=== PATIENT | female | born 1945 | race Caucasian/White ===

== ENCOUNTER 2024-05-19 10:41 | Outpatient (AMB) | payer OTHER, SELFPAY ==
--- NOTE | 2024-05-19 11:08 | MHC.OFFVIS ---
Vital Signs 05/19/24 11:09 Height 5 ft 3 in Weight 154 lb 4 oz BMI 27.3 BP 130/82 Blood Pressure Location Lt brachial Position Sitting Pulse 74 Pulse Source Pulse Oximeter Pulse Oximetry (%) 98 Oxygen Delivery Method Room Air Intake Visit Reasons: arthritis Allergies erythromycin base Allergy (Mild, Verified 05/19/24 11:25) Nausea Sulfa (Sulfonamide Antibiotics) [Sulfa (Sulfonamides)] Allergy (Mild, Unverified 01/27/20 17:35) RASH Penicillins Allergy (Unknown, Unverified 01/27/20 17:35) RASH HPI HPI arthritis: Details: She has bilateral knee pain with prolonged walking and gel phenomena. L knee patellar fracture 2012 healed on its own. She completed physical therapy but has felt that her left knee has not been the same since the fracture. She has seen [facility] and has received 3 cortisone injections last year in her right knee. At the time her left knee was not as painful when she received a cortisone injections. She reports that the initial cortisone injection was beneficial but the 2nd 1 did not last as long. Left knee pain started over the summer. She is currently experiencing pain in both knees worse when walking. She used to walk daily 6 to 7 times a week. She has tried Tylenol Arthritis 650 mg 1 tablet without benefit. She chooses to take a leave every other day, which helps her sleep through the night. She was told to avoid NSAIDs due to hypertension for which she is currently not on any medication for. She has had chronic neck and shoulder pain since age 29s. No change in symptoms. She overall has general stiffness in the morning. She has not experiencing any joint swelling. Denies fevers, rashes, dyspnea, pleurisy, oral ulcers, Raynaud's phenomenon. Denies scalp tenderness, headaches, vision changes, jaw pain. She reports her eyes are red and itchy. She has allergies. She discussed considering Sjogren syndrome with her freight trucker who did not feel that she has Sjogren syndrome. She had minimal dry mouth. She reports that her grandmother had rheumatism and had clinical osteoarthritis. 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 She has a drink weekly or less. Does not smoke. 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 Type 2 diabetes mellitus Statin intolerance Rosacea Osteoarthritis IBS (irritable bowel syndrome) Insomnia IgG monoclonal gammopathy Hyperparathyroidism Fibromyalgia Anxiety Surgical History (Updated 05/19/24 @ 11:31 by KEVIN Silverio) Hx of tonsillectomy H/O parathyroidectomy Hx of hysterectomy H/O colonoscopy Review of Systems Const All systems reviewed & are unremarkable except as noted in HPI and below Physical Exam Vital Signs: Last Vital Signs Pulse 74 05/19/24 11:09 BP 130/82 05/19/24 11:09 Pulse Ox 98 05/19/24 11:09 Oxygen Delivery Method Room Air 05/19/24 11:09 BMI result Body Mass Index 27.3 Const Other: General: Comfortable CVS: RRR Respiratory: clear to auscultation bilaterally. Good respiratory effort Skin: No lesions seen MSK: Heberden's node present right 5th DIPJ. No synovitis of any joints. She has turned to this of right 2nd and 3rd PIP. Good range of motion of upper extremities. Limited bilateral hip external rotation. Good knee flexion. She has tenderness along joint lines of bilateral knees. No knee effusions present. No ankle tenderness. Results Reviewed Results Reviewed: Labs from 01/30/2024 reviewed. Normal creatinine, CBC. Assessment & Plan Assessment & Plan (1) Knee pain, bilateral: Comment: With gel phenomenon suggesting osteoarthritis. She also has limited range of motion of her hips contributing to reduced mobility. Code(s): M25.561 - Pain in right knee; M25.562 - Pain in left knee Category: Medical Qualifiers: Chronicity: chronic Qualified Code(s): M25.561 - Pain in right knee; M25.562 - Pain in left knee; G89.29 - Other chronic pain Plan: X-ray of bilateral knees and hips ordered Return to clinic in 2-3 weeks for bilateral cortisone injections Take 2 tablets Tylenol 650 mg every 8 hours p.r.n. as needed PT ordered for lower extremity strengthening Avoid oral NSAIDs in setting of hypertension (2) Generalized stiffness: Comment: She is experiencing gel phenomenon, which is a symptom of osteoarthritis. Code(s): M25.60 - Stiffness of unspecified joint, not elsewhere classified Category: Medical Plan: PT ordered for lower extremity strengthening Return to clinic in 2-3 weeks Orders: Orders XR knee standing BI Today M25.561 - Pain in right knee, M25.562 - Pain in left knee XR hip TAHIR min 3V w/wo pel Today M25.60 - Stiffness of unspecified joint, not elsewhere classified PT Evaluation and Treatment Today M25.561 - Pain in right knee, M25.562 - Pain in left knee, M25.60 - Stiffness of unspecified joint, not elsewhere classified Coding Level of Care Code New Pt Level 4 (71793) Diagnoses Chronic pain of both knees M25.561; M25.562; G89.29 Chronicity: chronic Generalized stiffness M25.60
[2024-05-19 11:09] VITALS: BP 130/82; PULSE 74; O2SAT 98; BMI 27.3
== END 2024-05-19 12:16 | disposition home or self-care (01) ==
PROVIDERS: PCP Internal Medicine; Visit Provider Internal Medicine Rheumatology
DX: M25.561 Pain in right knee (principal); M25.562 Pain in left knee; G89.29 Other chronic pain; M25.60 Stiffness of unspecified joint, not elsewhere classified
CPT/HCPCS: 99204

== ENCOUNTER → 2024-05-19 10:41 | Outpatient (BNVA) | payer OTHER, SELFPAY | PROVIDERS: PCP Internal Medicine; Visit Provider Internal Medicine Rheumatology | DX: M25.561 Pain in right knee (principal); M25.562 Pain in left knee; G89.29 Other chronic pain; M25.60 Stiffness of unspecified joint, not elsewhere classified | CPT/HCPCS: 99202 ==

== ENCOUNTER 2024-05-21 12:26 | Outpatient (REF) | payer MEDICARE, SELFPAY ==
--- NOTE | ~2024-05-21 | XR_ITS ---
CLINICAL HISTORY: M25.60 - Stiffness of unspecified joint, not elsewhere classified 5 view, pelvis and bilateral hips Comparison: None Findings: No acute fracture or dislocation. No significant arthritic change. The soft tissues are unremarkable. IMPRESSION: No acute findings. This document has been electronically signed by: Dean Randle MD on 05/24/2024 12:24:20
--- NOTE | ~2024-05-21 | XR_ITS ---
CLINICAL HISTORY: M25.561 - Pain in right knee 1 view bilateral knee Comparison: None Findings: Bones intact. No dislocations. There is severe medial joint space narrowing at the right knee. There is mild medial joint space narrowing on the left. No joint effusion. No radiopaque foreign body. IMPRESSION: There is severe medial joint space narrowing at the right knee. There is mild medial joint space narrowing on the left. This document has been electronically signed by: Dean Randle MD on 05/24/2024 12:33:47
== END 2024-05-21 12:27 | disposition home or self-care (01) ==
LOC: HO.XRAY 12:26
PROVIDERS: PCP Internal Medicine; Visit Provider Internal Medicine Rheumatology
DX: M25.561 Pain in right knee (principal); M25.562 Pain in left knee; M25.60 Stiffness of unspecified joint, not elsewhere classified
CPT/HCPCS: 73522; 73565

== ENCOUNTER → 2024-05-21 12:35 | Outpatient (BNV) | payer MEDICARE, SELFPAY | PROVIDERS: PCP Internal Medicine; Visit Provider Radiology Diagnostic Radiology | DX: M25.561 Pain in right knee (principal); M25.562 Pain in left knee; M25.651 Stiffness of right hip, not elsewhere classified; M25.652 Stiffness of left hip, not elsewhere classified | CPT/HCPCS: 73522; 73565 ==

== ENCOUNTER 2024-06-08 09:48 | Outpatient (AMB) | payer MEDICARE, SELFPAY ==
[2024-06-08 09:53] VITALS: BP 128/72; PULSE 70; O2SAT 98; BMI 27.6
--- NOTE | 2024-06-08 09:53 | MHC.OFFVIS ---
Vital Signs 06/08/24 09:53 Height 5 ft 3 in Weight 156 lb BMI 27.6 BP 128/72 Blood Pressure Location Lt brachial Position Sitting Pulse 70 Pulse Source Pulse Oximeter Pulse Oximetry (%) 98 Oxygen Delivery Method Room Air Intake Visit Reasons: RTC Intake Note: Patient presents for follow up on bilateral knee pain. She was last seen on 05/19/2024. Patient would like to talk about cortisone injection today. Allergies erythromycin base Allergy (Mild, Verified 06/08/24 09:57) Nausea Sulfa (Sulfonamide Antibiotics) [Sulfa (Sulfonamides)] Allergy (Mild, Unverified 06/08/24 09:57) RASH Penicillins Allergy (Unknown, Unverified 06/08/24 09:57) RASH HPI HPI RTC: Details: Pain in knees is uncontrolled. She had cortisone injection in November, which was ineffective. After cortisone injection she was in [place] and was walking more than her usual. Prior to injection 11/2023 she had cortisone injections to bilateral knees with a few months of benefit. 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 Type 2 diabetes mellitus Statin intolerance Rosacea Osteoarthritis IBS (irritable bowel syndrome) Insomnia IgG monoclonal gammopathy Hyperparathyroidism Fibromyalgia Anxiety Surgical History (Updated 05/19/24 @ 11:31 by KEVIN Silverio) Hx of tonsillectomy H/O parathyroidectomy Hx of hysterectomy H/O colonoscopy Review of Systems Const All systems reviewed & are unremarkable except as noted in HPI and below Physical Exam Vital Signs: Last Vital Signs Pulse 70 06/08/24 09:53 BP 128/72 06/08/24 09:53 Pulse Ox 98 06/08/24 09:53 Oxygen Delivery Method Room Air 06/08/24 09:53 BMI result Body Mass Index 27.6 Const Other: General: Comfortable Skin: No lesions seen MSK: Good knee flexion. She has tenderness along joint lines of bilateral knees. No knee effusions present. No ankle tenderness. Office Procedures AMB Joint Injection/Aspiration Joint Injection/Aspiration Details: Bilateral knee joints Prep: site was prepped using aseptic technique Injected into each joint: 40 mg of, Kenalog, with 1 mL of and 1% plain lidocaine Procedure: The patient tolerated the procedure well. Postprocedure protocol was discussed with patient. Coding - Bilateral Large Joint Procedure code (CPT) selection complete AMB Joint Injection/Aspiration Coding 58354 - Bilateral Large Joint Procedure code (CPT) selection complete Office Meds lidocaine (PF) 10 mg/mL (1 %) injection solution Performing Provider: Romaine Yu MD Performing Location: [facility] Administered by: Romaine Yu MD on 06/08/24 22:14 Dose Route Admin Location Dispensed Lot Number Expiration Date [facility] [employer] 10 mg Infiltration 5 mL [id number] HUONS/VGYAAN Kenalog 40 mg/mL suspension for injection Performing Provider: Romaine Yu MD Performing Location: [facility] Administered by: Romaine Yu MD on 06/08/24 22:14 Dose Route Admin Location Dispensed Lot Number Expiration Date [facility] [employer] 40 mg intra-articular 1 mL AP [id number] [employer] lidocaine (PF) 10 mg/mL (1 %) injection solution Performing Provider: Romaine Yu MD Performing Location: [facility] Administered by: Romaine Yu MD on 06/08/24 22:14 Dose Route Admin Location Dispensed Lot Number Expiration Date [facility] Adult [employer] 10 mg Infiltration 2 mL [id number] FRESENIUS KA Kenalog 40 mg/mL suspension for injection Performing Provider: Romaine Yu MD Performing Location: [facility] Administered by: Romaine Yu MD on 06/08/24 22:14 Dose Route Admin Location Dispensed Lot Number Expiration Date [facility] Adult [employer] 40 mg intra-articular 1 mL [id number] [employer] Assessment & Plan Assessment & Plan (1) Osteoarthritis of knees, bilateral: Comment: Pain is uncontrolled. Personally reviewed x-rays with patient. Code(s): M17.0 - Bilateral primary osteoarthritis of knee Category: Medical Qualifiers: Osteoarthritis type: primary Qualified Code(s): M17.0 - Bilateral primary osteoarthritis of knee Plan: Patient received intra-articular cortisone injections to bilateral knees Continue to use Tylenol as needed for joint pain Avoid oral NSAIDs due to hypertension Continue physical therapy Return to clinic 3 months Orders: Orders AMB Joint Injection/Aspiration Today M17.0 - Bilateral primary osteoarthritis of knee XR knee RT 2V Today M17.0 - Bilateral primary osteoarthritis of knee XR knee LT 2V Today M17.0 - Bilateral primary osteoarthritis of knee AMB Joint Injection/Aspiration Today M17.0 - Bilateral primary osteoarthritis of knee Coding Level of Care Code Est Pt Level 3 (03534) Complex EM visit Add On G2211 Diagnoses Primary osteoarthritis of both knees M17.0 Osteoarthritis type: primary CPT Codes Coding - 98672 - Bilateral Large Joint: 60433 - Bilateral Large Joint ([id number]) Coding - 18230 - Bilateral Large Joint: 27742 - Bilateral Large Joint ([id number])
--- OUTSIDE RECORDS SUMMARY | 2024-06-08 10:25 | XMS_ITS | Patient Health Record ---
Author Organization [facility] Address [address] [place] [address] Care Team Providers Care Professional Development Instructor Name Role Phone MADDIE (RETIRED) STEPHAN Torres Primary Care Provi sulaiman Lila Gordon Unavailable [phone] Allergies Allergen (clinical drug ingredient) Drug/Non Drug Allergy documented on EMR Reaction Allergy Type Onset Date Status erythromycin Erythromycin Unknown Drug Allergy A ctive Sulfa Skin Rash Drug Allergy Active Penicillin Skin Rash Drug Allergy Active Reason For Referral No Information Medications Medication SIG (Take, Route, Fr equency, Duration) Notes Start Date End Date Status Calcium-D 600MG 1 ORAL daily for -3 Phillip-MJ 07/15/2011 Active Macrobid 100 MG 1 capsule with food Orally every 12 hrs for 5 days 12/30/2019 Active metFORMIN HCl Active PYRIDIUM 200 MG 1 tablet after meals Orally Three times a day for 3 days 12/30/2019 Act nina Xanax 0.5 MG 1 tablet Orally at bedtime prn Phillip-MJ 2013 Not-Taking Immunizations Vaccine Route Administration Date Status Comme nts Influenza, live, intranasal Unknown 10/06/2013 Pending Pneumococcal polysaccharide PPV23 Unknown 09/05/2017 Pe nding Td (adult), absorbed Unknown 10/06/2013 Pending Social History Tobacco Use: Social History Observation Description Date Details (start date - stop date) Never Smoker NA - NA Tobacco Use/Smoking Question Answer Notes Are you a nonsmoker Alcohol Screen (Audit-C) Question Answer Notes Did you have a drink contain ing alcohol in the past year? Yes How often did you have a dri nk containing alcohol in the past year? 2 to 4 times a month (2 points) How many drinks did you have on a typical day when you were drinking in the past year? 1 or 2 drinks (0 point) Points 2 Interpretation Negative Sexual History Question Answer Notes Had sex in the past 12 months (vaginal, oral, or anal)? Yes with Men only Prevention strategies discussed: Other Section Notes: Problems Problem Type SNOMED Code ICD Code Onset Dates Problem Status W/U Status Risk Notes Problem Postmenopausal atrophic vaginitis (13410135) Postmenopausal atrophic vaginitis (N95.2) Active confirmed Problem Gynecological examination normal ([id number]) Routine gynecological examination (V72.31) Active confirmed Diag Plan Of Treatment Pending Test Test Name Order Date Urinalysis 12/30/2019 THIN PREP,HPV,SATNAM IF HPV+ (>29YR)(SCRN) 09/05/2017 Insurance Providers Payer Name Payer Address Payer Phone Subscriber Number Group Number Insured Name Patient Relationship to Insured Coverage Start Date Coverage End Date MEDICARE [address] [facility] [place] [place] [id number] JOSE PÉREZ Self - patient is the insured MEDEX [address] [place] [address] [phone] [id number] JOSE PÉREZ Self - patient is the insured Medical (General) History Medical History History ICD Code Type 2 diabetes mellitus without complic ations E11.9 Fibromyalgia M79.7 Postmenopausal atrophic vaginitis N95.2 Surgical History Surgery Date(Month/Year) Hysterectomy LAVH no BSO Parathyroidectomy Colonoscopy Hospitalization History Reason Date(Month/Year) 2 Vaginal Deliveries See Surgical Hx
== END 2024-06-08 10:35 | disposition home or self-care (01) ==
PROVIDERS: PCP Internal Medicine; Visit Provider Internal Medicine Rheumatology
DX: M17.0 Bilateral primary osteoarthritis of knee (principal)
CPT/HCPCS: 20610; 99213

== ENCOUNTER → 2024-06-08 09:48 | Outpatient (BNVA) | payer MEDICARE, SELFPAY | PROVIDERS: PCP Internal Medicine; Visit Provider Internal Medicine Rheumatology | DX: M17.0 Bilateral primary osteoarthritis of knee (principal) | CPT/HCPCS: 20610; 99212; J2003; J3300 ==

== ENCOUNTER 2024-06-16 11:18 | Outpatient (REF) | payer MEDICARE, SELFPAY ==
--- NOTE | ~2024-06-16 | XR_ITS ---
EXAMINATION: XR KNEE, RIGHT CLINICAL INFORMATION: M17.0 - Bilateral primary osteoarthritis of knee COMPARISON: None available. TECHNIQUE: Single lateral projection of the right knee. FINDINGS: Inadequate evaluation demonstrated no gross malalignment or suprapatellar bursa joint effusion. Vascular calcifications. XR/XR knee RT 1V IMPRESSION: Limited exam due to recommend AP and oblique views with questionable sunrise projection. Electronically signed by: Norberto Reyes MD 06/16/2024 03:47 PM EST
--- NOTE | ~2024-06-16 | XR_ITS ---
EXAMINATION: XR KNEE, LEFT CLINICAL INFORMATION: M17.0 - Bilateral primary osteoarthritis of knee COMPARISON: None available. TECHNIQUE: Single lateral view of the left knee. FINDINGS: Inadequate evaluation demonstrated no gross malalignment or suprapatellar bursa joint effusion. Vascular calcifications. XR/XR knee LT 1V IMPRESSION: Limited exam. Recommend AP and oblique projections. Electronically signed by: Norberto Reyes MD 06/16/2024 03:46 PM EST
== END 2024-06-16 11:19 | disposition home or self-care (01) ==
LOC: HO.XRAY 11:18
PROVIDERS: PCP Internal Medicine; Visit Provider Internal Medicine Rheumatology
DX: M17.0 Bilateral primary osteoarthritis of knee (principal)
CPT/HCPCS: 73560

== ENCOUNTER → 2024-06-16 11:24 | Outpatient (BNV) | payer MEDICARE, SELFPAY | PROVIDERS: PCP Internal Medicine; Visit Provider Radiology Diagnostic Radiology | DX: M17.0 Bilateral primary osteoarthritis of knee (principal) | CPT/HCPCS: 73560 ==

== ENCOUNTER 2024-09-07 09:48 | Outpatient (AMB) | payer MEDICARE, SELFPAY ==
[2024-09-07 09:54] VITALS: BP 132/80; PULSE 66; O2SAT 97; BMI 27.7
--- NOTE | 2024-09-07 09:54 | MHC.OFFVIS ---
Vital Signs 09/07/24 09:54 Height 5 ft 3 in Weight 156 lb 4.924 oz BMI 27.7 BP 132/80 Blood Pressure Location Rt brachial Position Sitting Pulse 66 Pulse Source Pulse Oximeter Pulse Oximetry (%) 97 Oxygen Delivery Method Room Air Intake Visit Reasons: 3 mo follow up Intake Note: Patient presents today for an arthritis follow up. Allergies erythromycin base Allergy (Mild, Verified 09/07/24 09:57) Nausea Sulfa (Sulfonamide Antibiotics) [Sulfa (Sulfonamides)] Allergy (Mild, Verified 09/07/24 09:57) RASH Penicillins Allergy (Unknown, Verified 09/07/24 09:57) RASH HPI HPI 3 mo follow up: Details: She is planning right knee replacement in October. Left knee pain is constant. She is unable to walk like she used to. She can participate in her daily neighborhood walks anymore. Cortisone injection did not provide lasting relief. She will discuss gel injection of left knee with ortho after replacement of right knee. She completed PT and is compliant . She uses Tylenol as needed. PCP told her to avoid NSAIDs as they were affecting her blood pressure contributing to hypertension. 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 Type 2 diabetes mellitus Statin intolerance Rosacea Osteoarthritis IBS (irritable bowel syndrome) Insomnia IgG monoclonal gammopathy Hyperparathyroidism Fibromyalgia Anxiety Surgical History Hx of tonsillectomy H/O parathyroidectomy Hx of hysterectomy H/O colonoscopy Review of Systems Const All systems reviewed & are unremarkable except as noted in HPI and below Physical Exam Vital Signs: Last Vital Signs Pulse 66 09/07/24 09:54 BP 132/80 09/07/24 09:54 Pulse Ox 97 09/07/24 09:54 Oxygen Delivery Method Room Air 09/07/24 09:54 BMI result Body Mass Index 27.7 Const Other: General: Comfortable Skin: No lesions seen MSK: Normal knee flexion. She has tenderness along joint lines of bilateral knees. No knee effusions present. Assessment & Plan Assessment & Plan (1) Osteoarthritis of knees, bilateral: Comment: Pain is uncontrolled. Failed cortisone injections and PT. She is planning right knee total replacement in October. She will consider left knee hyaluronic acid injection after surgery. Code(s): M17.0 - Bilateral primary osteoarthritis of knee Category: Medical Qualifiers: Osteoarthritis type: primary Qualified Code(s): M17.0 - Bilateral primary osteoarthritis of knee Plan: Continue to use Tylenol as needed for joint pain Avoid oral NSAIDs due to risk of adverse effect contributing to hypertension Continue physical therapy exercises at home She will follow up with orthopedic surgeon Return to clinic PRN. Coding Level of Care Code Est Pt Level 3 (44801) Complex EM visit Add On G2211 Diagnoses Primary osteoarthritis of both knees M17.0 Osteoarthritis type: primary
--- OUTSIDE RECORDS SUMMARY | 2024-09-07 10:57 | XMS_ITS | Data Portability ---
Author Organization [facility], [facility] Address [address] [place] [address] Care Team Providers Care Commercial Field Inspector Name Role Phone ALONZO JAMES Primary Care Provider [phone] Assessment Encounter Date Assessment Date Assessment LastModified by Organization Details LastModified Time 09/02/2024 09/02/2024 Imaging: Imaging ordered, independently reviewed and interpreted by Jak Christy MD reveals the following findings: XR Knee Right Knee: Four views of the knee were obtained including AP, gardner, sunrise, and lateral views. Severe DJD present. Changes consistent with osteoarthritis including joint space narrowing, subchondral sclerosis, and osteophyte formation. Arthrosis primariliy affects the medial compartment. Alignment: Varus Impression: Right knee osteoarthritis Plan: I recommend a total knee arthroplasty for relief of their degenerative joint disease of the knee. They have exhausted conservative measures. Their symptoms are significant enough to warrant replacement. I informed the patient that the goal is to offer significant pain relief for about 15 years, and hopefully this also improves their knee function. Activities can be resumed after surgery, however running and jumping are discouraged. They agree to this procedure. Prior to surgery the patient needs to have the following: CBC, CMP, medical clearance, Indications for surgery: Advanced joint disease demonstrated by: Xray Failure of conservative management Unsuccessful history of appropriate conservative therapy (non-surgical medical management). Non surgical medical management was implemented for 3 months or more to assess effectiveness. Conservative treatment as clinically appropriate for the patient? s current episode of care including, but not limited to, one or more of the following: anti-inflammatory medications, analgesics, flexibility and muscle strengthening exercises, supervised physical therapy, activities of daily living (ADLs) diminished despite completing a plan of care, activity restrictions as is reasonable, assistive device use, weight reduction as appropriate, and therapeutic injections into the joint as appropriate. Risks and benefits of surgery were discussed with the patient and the patient understood. We discussed the alternatives and details of surgery and postoperative care with the patient. The patient understands the concepts of surgery and the postoperative conditions required for healing. The patient further understands that surgery can have unfavorable outcomes. In particular, we discussed the possible complications of nonhealing of the tissues and need for reoperation, nerve injury, bleeding or blood loss requiring transfusion, hematoma or complications of anticoagulation used to prevent blood clots, infection requiring further surgery or removal of implants, massive infection requiring amputation, or continued or worse pain. We also discussed worsening of chronic medical conditions and life-threatening complications including stroke, clot, heart attack, pulmonary embolism and related to the surgery or anesthesia, or other factors. The patient understands these risks and benefits of surgery and wishes to proceed, and has signed consent willfully. Due to the condition of the joint, it is my medical opinion that further conservative treatment will not provide relief of their pain, thus we are proceeding with surgery. 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 Patients prescribed antithrombotic therapy for an indication other than post-operative VTE prophylaxis should be assessed on an individual basis for continuation of their current therapy. If using a direct oral anticoagulant (DOAC) as home regimen, either resume DOAC post-op, or consider temporary transition to Warfarin therapy in the post-operative period. [email or web address] Not available 09/02/2024 15:43:32 Plan of Treatment Reminders Order Date Submit Date Provider Last Modified By Organization Details Last Modified Time Details Appointments PT INITIAL EVAL 2024 01:00P Andres Montez PT Not available Not available Not available [facility]P 2024 10:00A M Tamiko Rey, GLUE WHEEL OPERATOR Not available Not available Not available SURGERY @ [facility] 2024 10:30A M Jak Christy MD Not available Not available Not available PT INITIAL EVAL 2024 09:30A M Char Wing, PT Not available Not available Not available POST OP 15 2024 10:15A M Ignacio Bains, PA-C Not available Not available Not available PT FOLLOW-U P 2024 10:30A M Char Wing, PT Not available Not available Not available PT FOLLOW-U P 2024 11:00A M Sheridan Carter, PRINTED CIRCUIT BOARDS BEVELER Not available Not available Not available PT FOLLOW-U P 2024 11:00A M Sheridan Sepulvedaente, PRINTED CIRCUIT BOARDS BEVELER Not available Not available Not available PT FOLLOW-U P 2024 11:00A M Sheridan Carter, PRINTED CIRCUIT BOARDS BEVELER Not available Not available Not available PT FOLLOW-U P 2024 12:00P M Char Wing, PT Not available Not available Not available PT FOLLOW-U P 2024 10:30A M Sheridan Carter, PRINTED CIRCUIT BOARDS BEVELER Not available Not available Not available PT FOLLOW-U P 2024 11:00A M Sheridan Sepulvedaente, PRINTED CIRCUIT BOARDS BEVELER Not available Not available Not available PT FOLLOW-U P 2024 11:00A M Sheridan Carter, PRINTED CIRCUIT BOARDS BEVELER Not available Not available Not available PT FOLLOW-U P 2024 11:00A M Sheridan Carter, PRINTED CIRCUIT BOARDS BEVELER Not available Not available Not available POST OP 10 2024 02:50P M Jak Christy MD Not available Not available Not available PT FOLLOW-U P 2024 10:30A M Sheridan Carter, PRINTED CIRCUIT BOARDS BEVELER Not available Not available Not available PT FOLLOW-U P 2024 12:00P M Char Wing, PT Not available Not available Not available PT FOLLOW-U P 2024 12:00P M Sheridan Carter, PRINTED CIRCUIT BOARDS BEVELER Not available Not available Not available PT FOLLOW-U P 2024 11:00A M Sheridan Carter, PRINTED CIRCUIT BOARDS BEVELER Not available Not available Not available PT FOLLOW-U P 2024 11:00A M Sheridan Carter, PRINTED CIRCUIT BOARDS BEVELER Not available Not available Not available Lab None recorded . Referral None recorded . Procedures None recorded . Surgeries None recorded . Imaging XR, knee, 4 or more view - frandy monique zena [facility] knee pain room 203 2024 025 [email or web address] [facility] Office, [address] [facility] [address], [place], [address], 09/06/2024 18:40:41 Medication Orders None recorded . Patient TargetsNo targets recorded. Patient InstructionsNo instructions recorded. Reason for Referral None Reported. Results Created Date Observation Date Name Description Value Unit Range Abnormal Flag Note LastModifiedBy Organization Detail LastModifiedTime 01/09/2006/24/2019 imagi ng/di agnos tic resul t No observ ation record ed. [email or web address] Not Available 12/12 12:25:24 01/09/20 24 10/07/2018 imagi ng/di agnos tic resul t No observ ation record ed. [email or web address] Not Available 12/12 12:25:46 09/03/19 25 09/02/2024 XR, knee, 4 or more view [email or web address] ?Encry pted=s hAaTro YD8dLq bEUv6g %2BXZw aYqtaq 0bqfl% 2Fg9IQ a4ajBk vP9nXo QUaueC m3YtLR FvZlgJ JJ8mAn HZtai3 4s2326 AC0Kla nyAU6O nKiQtr MwF INTERFACE [facility] [address], [place], [address], 09/02/2024 14:52:59 09/03/19 25 09/02/2024 XR, knee, 4 or more view [email or web address] ?Encry pted=s hAaTro YD8dLq bEUv6g %2BXZw aYqtaq 0bqfl% 2Fg9IQ a4ajBk vP9nXo QUaueC m3YtLR FvZlgJ JJ8mAn HZtai3 4y1027 AC0Kla nyAU6O nKiQtr MwF INTERFACE [facility] [address], [place], [address], 09/02/2024 14:53:01 Result Notes None recorded. Problems Name Problem SNOMED Code Status Onset Date Resolution Date Notes Provider Name and Address Organization Details Recorded Time Pain of bilateral knee regions 899053452987 102 Active 2024 EDY Hall'KIMBERLY stanley [place] - [facility] 5 14:37:13 Pain of left hip joint 993681318768 100 Active 2019 Problem Code: M25.552; Problem Code Type: ICD-10; Status: 'A'; Not Available [facility] 4 11:57:28 Problem Notes None recorded. Procedures Surgical History Date Name Laterality Status Provider Name and Address Organization Details Recorded Time 4 Knee Kenalog 40mg 2cc Injection, L/R completed Chalo Reyna PA-C [address], [place], [address], [facility] - [facility] 09/01/2023 12:31:14 Imaging Results Imaging Date Name Status LastModified by Organiz ation Details LastModified Time 06/24/2019 imaging/diag nostic result completed Information not available 01/09/2024 12:25:24 10/07/2018 imaging/diag nostic result completed Information not available 01/09/2024 12:25:46 09/02/2024 XR, knee, 4 or more view completed INTERFACE [facility] [address], [place], [address], 09/02/2024 14:52:59 09/02/2024 XR, knee, 4 or more view completed INTER[facility] [address], [place], [address], 09/02/2024 14:53:01 Procedure Notes None recorded. Medical Equipment None Reported. Allergies Allergen ID Allergen Name Allergen Category Reaction Reaction Severity Criticality Documentation Date Start Date Code Code System Note Provider Name and Address Organization Details Recorded Time 78770 Substance with sulfonami de structure and antibacte rial mechanism of action (substanc e) medicatio n Not available Not available Not available 07/14/20232018 90018 8003 SNOMED Not Available [facility] 11:53:18 37901 Product containin g penicilli n (product) medicatio n Not available Not available Not available 07/14/20232018 08941 8001 SNOMED Not Available [facility] 4 11:53:18 Medications Name Sig Start Date Stop Date Status Note LastModified by Organization Details LastModified Time metformin 500 mg tablet TAKE 1 TABLET BY MOUTH TWICE A DAY WITH MEALS active Not Available Not Available No t Available doxycycline hyclate 100 mg capsule TAKE ONE PILL TWICE A DAY FOR 5 DAYS WITH FOOD AND WATER. 09/02 completed Not Available Not Available Not Available FreeStyle Lancets 28 gauge TEST UP TO ONCE PER DAY. DX E11.9 active Not Available Not Available No t Available diphenoxyla te-atropine 2.5 mg-0.025 mg tablet TAKE 1 TABLET BY MOUTH 4 TIMES A DAY NEEDED active Not Available Not Available No t Available alprazolam 0.25 mg tablet TAKE 1/2 TO 1 TABLET BY MOUTH DAILY AT BEDTIME NEEDED FOR INSOMNIA active Not Available Not Available No t Available pravastatin 10 mg tablet TAKE 1 TABLET BY MOUTH EVERYDAY AT BEDTIME 09/02 completed Not Available Not Available Not Available phenazopyri dine 100 mg tablet TAKE 1 TABLET BY MOUTH THREE TIMES A DAY NEEDED FOR PAIN FOR 3 DAYS 09/02 completed Not Available Not Available Not Available valsartan 40 mg tablet TAKE 1 TABLET BY MOUTH EVERY DAY active Not Available Not Available No t Available ezetimibe 10 mg tablet TAKE 1 TABLET BY MOUTH EVERY DAY active Not Available Not Available No t Available nitrofurant oin monohydrate /macrocryst als 100 mg capsule TAKE 1 CAPSULE BY MOUTH EVERY 12 HOURS FOR 5 DAYS MUST ADMINISTE R WITH A MEAL/FOOD 09/02 completed Not Available Not Available Not Available duloxetine 30 mg capsule,del ayed release TAKE 1 CAPSULE BY MOUTH DAILY,INS TR:DO NOT CRUSH OR CHEW 09/02 completed Not Available Not Available Not Available bromfenac 0.09 % eye drops INSTILL 1 DROP INTO THE SURGICAL EYE X 4 WEEKS POSTOPERA TIVELY. 09/02 completed Not Available Not Available Not Available FreeStyle Lite Strips USE TO TEST DAILY. DX:E11.9 active Not Available Not Available No t Available Paxlovid 300 mg (150 mg x 2)-100 mg tablets in a dose pack TAKE 3 TABLETS BY MOUTH TWICE A DAY FOR 5 DAYS 09/02 completed Not Available Not Available Not Available Vitals Date Recorded Body height Body mass index (BMI) Body weight Provider Name and Address Organization Details Last Updated DateTime 09/03/2023 160.02 cm 27.3 kg/m2 47405.22 g Marjorie Kumar [facility] 09/03/2023 08:04:06 Date Recorded Body height Body mass index (BMI) Body weight Provider Name and Address Organization Details Last Updated DateTime 09/02/2024 157.48 cm 28.5 kg/m2 93632.41 g EDY SALDANA [facility] 09/02/2024 14:34:38 Social History Question Answer Notes LastModified by Organizat ion Details LastModified Time Tobacco Smoking Status Never Smoker EDY SALDANA [facility] 09/02/2024 14:36:22 What Is Your Level Of Alcohol Consumption? Occasional Information not available 09/02/2024 How Many Times Per Week Do You Consume Alcohol? Less Than 1 Time Per Week Information not available 09/02/2024 Have You Ever Been Counseled For Unhealthy Alcohol Use? No Information not available 09/02/2024 What Is Your Relationship Status? Information not available 09/02/2024 Do You Use Any Illicit Or Recreational Drugs? No Information not available 09/02/2024 Do You Or Have You Ever Used Any Other Forms Of Tobacco Or Nicotine? No Information not available 09/02/2024 Sex: Unknown Functional Status None recorded. Mental Status None recorded. Family History Nothing Reported. Medical History Condition Response Allergies/Hayfever N Coronary Artery Disease N Anxiety/Depression N Breathing or lung disorders N Emphysema N Nerve Disorders N Thyroid Problems N COPD N Pacemaker N Anemia N Kidney/Bladder Problems N Vascular Disease N Heart Trouble N Heart Attack (CA) N Gastrointestinal Disease Y Cholesterol Y Diabetes Y Autoimmune disease N Bleeding Disorder N Inflammatory Joint disease Y Orthotics N Arthritis Y Seizures/Epilepsy N Blood Clot N AIDS/HIV N Congestive Heart Failure (CHF) N Acid Reflux (GERD) N Cancer N Stroke N Asthma N Circulation Problems N Peripheral Vascular Disease N Sleep Apnea N Hepatitis N Heart Disease N Rheumatoid Arthritis N Arrhythmia N Pulmonary Embolism N Headaches N Fibromyalgia Y Hypertension Y Osteoporosis N Gynecological HistoryNo gynecological history recorded. Obstetrics History GPAL:G 0 P 0 0 0 0 Past Encounters Encounter ID Performer Location Encounter Start Date Encounter Closed Date Diagnosis/Indication Diagnosis SNOMED-CT Code Diagnosis ICD10 Code Diagnosis Note [id number] MARIA ELENA Mena [address] [place] [address] 09/03/2023 07:55:02 09/03/2023 08:44:43 Osteoarthritis of right knee joint 1420724016 80991 M17.11 [id number] MD SASHA Munguia [address] [place] [address] 09/02/2024 14:29:19 09/06/2024 15:32:07 Pain of bilateral knee regions 0238457859 05517 M25.561 M25.562 Osteoarthr itis of right knee joint 2812614497 40105 M17.11 Health Concerns Section Related Observation LastModified by Organization Detai ls LastModified Time None Recorded Concern Status LastModified by Organization Details LastModified Time None Recorded Advance Directives Directive None Recorded Payers Encounter Date Sequence Insurance Name Policy Number Policy Alvarenga Covered Member ID Alvarenga Member ID Guarantor Name 09/03/2023 2 [place] [id number] Lauren Malagon [id number] Lauren Malagon 09/03/2023 1 [place] [email or web address] Lauren Malagon [id number] Lauren Malagon 09/02/2024 2 [place] [id number] Lauren Malagon [id number] Lauren Jalloh Jhonellis 09/02/2024 1 [place] [facility] Lauren Malagon [id number] Lauren Malagon Notes Date Note Type Note Provider Name and Address Organization Details Recorded Time 4 text/html I am seeing the patient today under the supervision of {{Rosa* Brothers Gissell Zhu}} who was available but who did not see the patient. HPI: Patient returns for follow-up of right knee pain. Patient has known arthritis of the right knee. The patient has been doing well with conservative treatment. Past family, medical, social history and review of systems has been reviewed, updated and is located in the patient? s chart. Examination: The patient is well appearing and in no apparent distress. Alert and oriented x3. Gait is symmetric. Mild swelling of the right knee. Range of motion of the right knee is flexion to {{100 105 110 115* 120} }. Full internal and external rotation of the hips without pain. Peripheral, vascular, lymphatic examination, skin, neurological, coordination, reflexes, sensation are within normal limits. Impression: Right Knee arthritis.. Plan: Reviewed diagnosis with the patient today in the office. Given this amount of arthritis in the knee recommended conservative management. Activity modification discussed. P.r.n. NSAIDs can be used. Discussed role of injection therapies both cortisone and viscosupplementation. Today, injected the right knee with cortisone. Injected 80 mg of Kenalog, and 8 cc of 1/4% Marcaine. Reviewed home exercise program. Patient can return for injections every 3 months if necessary. Briefly discussed the role of total joint arthroplasty if and when conservative management fails and x-ray evaluation worsens. Follow-up p.r.n. Chalo Reyna PA-C [address] [facility] [address], [place], [address], [facility] - [facility] 09/03/2023 08:07:55 5 text/html History of present illness:Complaint: Right knee painPain: The pain is severe, it is worsened with activity and has gotten to point where it limits the patient's ability to ambulate moderate distances without needing to rest for pain relief. The patient is limited in their regular daily and social activities as a result of this painNon-operative treatment: Patient has tried and failed anti-inflammatory pain medications, Tylenol, physical therapy, and injections.Lauren is an extremely friendly and pleasant 78-year-old female who presents today for evaluation for her right knee. They have a known, longstanding history of right knee osteoarthritis and have undergone a lengthy course of conservative management with generalized failure of nonsurgical options. Their pain is severe and worsened with activity, it has gotten to the point where it is significantly interfering with their ability to perform activities of daily living as well as daily social tasks. They are interested in pursuing total knee arthroplasty for definitive relief of their pain from osteoarthritisPast family, medical, social history and review of systems has been reviewed and updated, and is located in the patient? s chart. Jak Christy MD [address] [place], [place] [address] [address], [place], [address], [facility] - [facility] 09/02/2024 15:43:46 OBGyn Episode No OBEpisode recorded.
--- OUTSIDE RECORDS SUMMARY | 2024-09-07 10:57 | XMS_ITS | Patient Health Record ---
Author Organization [facility] Address [address] [place] [address] Care Team Providers Care Yard Driver Name Role Phone MADDIE (RETIRED) STEPHAN Torres Primary Care Provi sulaiman Lila Gordon Unavailable [phone] Allergies Allergen (clinical drug ingredient) Drug/Non Drug [...] Status Risk Notes Problem Postmenopausal atrophic vaginitis (74168004) Postmenopausal atrophic vaginitis (N95.2) Active confirmed Problem Gynecological examination normal (846586456958546) Routine gynecological examination (V72.31) Active confirmed Diag Plan Of Treatment Pending Test Test Name Order Date Urinalysis 12/30/2019 THIN PREP,HPV,SATNAM IF HPV+ (>29YR)(SCRN) 09/05/2017 Insurance Providers Payer Name Payer Address Payer Phone Subscriber Number Group Number Insured Name Patient Relationship to Insured Coverage Start Date Coverage End Date [facility]ICARE [address] [facility] [place] [id number] JOSE PÉREZ Self - patient is the insured MEDEX [address] [place] [address] [id number] JOSE PÉREZ Self - patient is the insured Medical (General) History Medical History History ICD Code Type 2 diabetes mellitus without complic ations E11.9 Fibromyalgia M79.7 Postmenopausal atrophic vaginitis N95.2 Surgical History Surgery Date(Month/Year) Hysterectomy LAVH no BSO Parathyroidectomy Colonoscopy Hospitalization History Reason Date(Month/Year) 2 Vaginal Deliveries See Surgical Hx
== END 2024-09-07 11:10 | disposition home or self-care (01) ==
LOC: HO.RHES 09:48
PROVIDERS: PCP Internal Medicine; Visit Provider Internal Medicine Rheumatology
DX: M17.0 Bilateral primary osteoarthritis of knee (principal)
CPT/HCPCS: 99213; G2211

== ENCOUNTER → 2024-09-07 09:48 | Outpatient (BNVA) | payer MEDICARE, SELFPAY | PROVIDERS: PCP Internal Medicine; Visit Provider Internal Medicine Rheumatology | DX: M17.0 Bilateral primary osteoarthritis of knee (principal) | CPT/HCPCS: 99212 ==